=== PATIENT | female | born 1980 | race Caucasian/White ===

== ENCOUNTER 2016-03-03 11:11 | Outpatient (CLI) | payer MEDICAID | END 2016-03-03 11:12 | disposition home or self-care (01) | DX: E11.9 Type 2 diabetes mellitus without complications (principal) ==

== ENCOUNTER 2016-05-05 07:03 | Emergency (ER) | payer MEDICAID ==
[2016-05-05] MEDS ORDERED: ONDANSETRON 4 MG/2 ML VIAL IVP STA (07:22)
[2016-05-05] MEDS ORDERED: SODIUM CHLORIDE 0.9% 1,000 ML IV ONE (07:22)
[2016-05-05] MEDS ORDERED: KETOROLAC 60 MG/2 ML VIAL IVP STA (07:22)
[2016-05-05] MEDS ORDERED: ONDANSETRON 4 MG/2 ML VIAL ONE (07:32)
[2016-05-05] MEDS ORDERED: KETOROLAC 30 MG/ML VIAL ONE (07:32)
[2016-05-05] MEDS ORDERED: HYDROcod/ACETAM 5/325 MG TABLET PO STA (09:55)
[2016-05-05] MEDS ORDERED: HYDROcod/ACETAM 5/325 MG TABLET ONE (10:03)
== END 2016-05-05 10:52 | disposition home or self-care (01) ==
DX: R10.2 Pelvic and perineal pain (principal); N92.0 Excessive and frequent menstruation with regular cycle; E11.9 Type 2 diabetes mellitus without complications; F17.200 Nicotine dependence, unspecified, uncomplicated
CPT/HCPCS: 36415; 76830; 76856; 80053; 81001; 81025; 83690; 84443; 85025; 93976; 96361; 96374; 96375; 99284; A9270

== ENCOUNTER 2017-05-04 07:47 | Outpatient (CLI) | payer MEDICAID ==
[2017-05-04 13:34] LABS: ALBUMIN/GLOBULIN RATIO 1.4 (1.0-2.2); ALKALINE PHOSPHATASE 49 IU/L (42-121); ALT ALANINE AMINOTRANSFERASE 14 IU/L (10-60); AST ASPARTATE AMINOTRANSFERASE 15 IU/L (10-42); BILIRUBIN,TOTAL 0.6 mg/dL (0.2-1.0); BUN - BLOOD UREA NITROGEN 16 mg/dL (6-20); CALCIUM 8.8 mg/dL (8.5-10.3); CARBON DIOXIDE - CO2 25 mmol/L (21-32); CHLORIDE 103 mmol/L (101-111); CHOL/HDL RATIO 5.4 (<4.4); CHOLESTEROL 195 mg/dL; CREATININE 0.7 mg/dL (0.4-1.0); GFR - MDRD 94 (>89); GLUCOSE 202 mg/dL (70-100); HDL CHOLESTEROL 36 mg/dL; LDL CHOLESTEROL,CALCULATED 124 mg/dL; LDL/HDL RATIO 3.4 (<4.4); SODIUM 138 mmol/L (135-145); TOTAL PROTEIN 6.9 g/dL (6.7-8.2); VLDL CHOLESTEROL 35 mg/dL
[2017-05-04 13:39] LABS: HB2 TOTAL 14.6 g/dL; HEMOGLOBIN A1C 1.07 g/dL; HEMOGLOBIN A1C % 8.9 % (4.6-6.2)
== END 2017-05-04 07:48 | disposition home or self-care (01) ==
LOC: LAB.N 07:47
PROVIDERS: ATTEND Nurse Practitioner
DX: E11.65 Type 2 diabetes mellitus with hyperglycemia (principal)
CPT/HCPCS: 36415; 80053; 80061; 82043; 83036; 83721; 84443

== ENCOUNTER 2017-08-11 08:00 | Outpatient (CLI) | payer MEDICAID ==
[2017-08-11 13:00] LABS: ALBUMIN/GLOBULIN RATIO 1.3 (1.0-2.2); ALKALINE PHOSPHATASE 55 IU/L (42-121); ALT ALANINE AMINOTRANSFERASE 11 IU/L (10-60); AST ASPARTATE AMINOTRANSFERASE 15 IU/L (10-42); BILIRUBIN,TOTAL 0.7 mg/dL (0.2-1.0); BUN - BLOOD UREA NITROGEN 13 mg/dL (6-20); CALCIUM 8.6 mg/dL (8.5-10.3); CARBON DIOXIDE - CO2 21 mmol/L (21-32); CHLORIDE 106 mmol/L (101-111); CHOL/HDL RATIO 5.1 (<4.4); CHOLESTEROL 183 mg/dL; CREATININE 0.7 mg/dL (0.4-1.0); GFR - MDRD 94 (>89); GLUCOSE 203 mg/dL (70-100); HDL CHOLESTEROL 36 mg/dL; LDL CHOLESTEROL,CALCULATED 121 mg/dL; LDL/HDL RATIO 3.4 (<4.4); SODIUM 135 mmol/L (135-145); TOTAL PROTEIN 7.2 g/dL (6.7-8.2); VLDL CHOLESTEROL 26 mg/dL
[2017-08-11 13:38] LABS: HB2 TOTAL 15.7 g/dL
== END 2017-08-11 08:01 ==
LOC: LAB.N 08:00
PROVIDERS: ATTEND Nurse Practitioner
DX: E11.65 Type 2 diabetes mellitus with hyperglycemia (principal)
CPT/HCPCS: 36415; 80053; 80061; 82043; 83036; 83721; 84443

== ENCOUNTER 2017-12-12 16:14 | Outpatient (CLI) | payer MEDICAID ==
--- NOTE | 2017-12-12 16:57 | XRAY Report ---
Reason: SPRAINED WRIST Procedure Date: 12/12/2017 Accession Number: [id number] / [id number] Procedure: XRN - Hand 3 View LT CPT Code: FULL RESULT: EXAM: LEFT HAND RADIOGRAPHY EXAM DATE: 12/12/2017 04:29 PM. CLINICAL HISTORY: SPRAINED WRIST. Pain COMPARISON: None. TECHNIQUE: 3 views. FINDINGS: Bones: No fractures or bone lesions. Joints: No subluxations or significant degenerative narrowing. Soft Tissues: No soft tissue swelling or radiopaque foreign body. IMPRESSION: Normal left hand radiography. RADIA
== END 2017-12-12 16:15 | disposition home or self-care (01) ==
LOC: DI.N 16:14
PROVIDERS: ATTEND Nurse Practitioner
DX: S63.592A Other specified sprain of left wrist, initial encounter (principal); M79.645 Pain in left finger(s)

== ENCOUNTER 2017-12-21 09:20 | Outpatient (CLI) | payer MEDICAID ==
[2017-12-21 13:18] LABS: ALBUMIN 4.2 g/dL (3.2-5.5); ALBUMIN/GLOBULIN RATIO 1.4 (1.0-2.2); ALKALINE PHOSPHATASE 61 IU/L (42-121); ALT ALANINE AMINOTRANSFERASE 20 IU/L (10-60); AST ASPARTATE AMINOTRANSFERASE 18 IU/L (10-42); BILIRUBIN,TOTAL 0.5 mg/dL (0.2-1.0); BUN - BLOOD UREA NITROGEN 17 mg/dL (6-20); CALCIUM 9.3 mg/dL (8.5-10.3); CARBON DIOXIDE - CO2 25 mmol/L (21-32); CHLORIDE 101 mmol/L (101-111); CHOL/HDL RATIO 6.5 (<4.4); CHOLESTEROL 208 mg/dL; CREATININE 0.8 mg/dL (0.4-1.0); GFR - MDRD 80 (>89); GLUCOSE 283 mg/dL (70-100); HDL CHOLESTEROL 32 mg/dL; SODIUM 136 mmol/L (135-145); TOTAL PROTEIN 7.3 g/dL (6.7-8.2); URIC ACID 5.4 mg/dL (2.6-7.2)
[2017-12-21 13:38] LABS: LDL CHOLESTEROL,DIRECT 126 mg/dL; LDLD/HDL RATIO 3.9 (<4.4)
[2017-12-21 13:51] LABS: HB2 TOTAL 16.2 g/dL; HEMOGLOBIN A1C 1.24 g/dL; HEMOGLOBIN A1C % 9.2 % (4.6-6.2)
== END 2017-12-21 09:21 ==
LOC: LAB.N 09:20
PROVIDERS: ATTEND Nurse Practitioner
DX: E11.65 Type 2 diabetes mellitus with hyperglycemia (principal); M79.645 Pain in left finger(s)
CPT/HCPCS: 36415; 80053; 80061; 82043; 83036; 83721; 84443; 84550

== ENCOUNTER 2018-05-06 08:55 | Emergency (ER) | payer MEDICAID, OTHER ==
[2018-05-06 09:02] VITALS: BP 138/58
[2018-05-06] MEDS ORDERED: DEXAMETHASONE 10 MG/ML VIAL PO STA (10:27)
[2018-05-06] MEDS ORDERED: IPRATROPIUM/ALBUTEROL 3 ML NEB INH STA (10:28)
--- NOTE | 2018-05-06 10:29 | ED Physician Documentation ---
PD HPI URI - Stated complaint Stated Complaint: SOA/FEVER - Chief complaint Chief Complaint: Resp - History obtained from History obtained from: Patient, Family - History of Present Illness Timing - onset: How many days ago (3) Timing duration: Days (3) Timing details: Gradual onset, Still present Associated symptoms: Nasal congestion, Rhinorrhea, Productive cough, Dyspnea Contributing factors: Sick contact Improves by: Rest, Medication Similar symptoms before: Diagnosis (pneumonia RAD) Recently seen: Not recently seen - Additional information Additional information: 37-year-old diabetic female has developed a cough and congestion 3 days ago and she is coughing up some brown phlegm and feels short of breath. She has had use an inhaler previously she has not had fever with this. She does state that her diabetes has been poorly controlled she does have insulin at home and a sliding scale and she has not been checking her sugars. Review of Systems Constitutional: denies: Fever Eyes: denies: Decreased vision Ears: denies: Ear pain Nose: reports: Rhinorrhea / runny nose, Congestion, Sinus pressure / pain Throat: denies: Sore throat Cardiac: denies: Chest pain / pressure, Palpitations Respiratory: reports: Dyspnea, Cough GI: denies: Abdominal Pain, Nausea, Vomiting : denies: Dysuria Skin: denies: Rash Musculoskeletal: denies: Neck pain, Back pain Neurologic: denies: Generalized weakness, Focal weakness, Numbness PD PAST MEDICAL HISTORY - Past Medical History Cardiovascular: None Respiratory: None Endocrine/Autoimmune: Type 2 diabetes GI: None 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 - Past Surgical History Past Surgical History: Yes /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 - Present Medications Home Medications: Ambulatory Orders Medication Instructions Recorded Confirmed Insulin Aspart [Novolog Flexpen] 5 unit SUBQ TIDWM 05/18/17 05/06/18 Liraglutide [Victoza 2-Archie] 0.6 mg SQ QPM 05/18/17 05/06/18 Insulin Glargine [Lantus Solostar] 8 unit SUBQ DAILY 06/15/17 05/06/18 Albuterol Sulf [Ventolin Hfa 1 - 2 puffs INH Q4HR PRN #1 inhaler 05/06/18 Inhaler] Amox/Clav 875/125 [Augmentin] 1 each PO Q12H #20 tablet 05/06/18 Fluconazole [Diflucan] 150 mg PO ONCE #1 tablet 05/06/18 - Allergies Allergies/Adverse Reactions: Allergies Allergy/AdvReac Type Severity Reaction Status Date / Time pramoxine [From [place] [place]] Allergy Severe Hives Verified 05/06/18 09:02 strawberry Allergy Unknown Verified 05/06/18 09:02 - Social History Does the pt smoke?: Yes Smoking Status: Current some day smoker Does the pt drink ETOH?: No Does the pt have substance abuse?: No - Immunizations Immunizations are current?: Yes PD ED PE NORMAL - Vitals Vital signs reviewed: Yes (tachy nad hypertensive ) - General General: Alert and oriented X 3, No acute distress, Well developed/nourished - HEENT HEENT: Atraumatic, PERRL, EOMI, Ears normal, Moist mucous membranes, Pharynx benign, Other (There is left maxillary sinus point tenderness) - Neck Neck: Supple, no meningeal sign, No bony TTP - Cardiac Cardiac: RRR, No murmur - Respiratory Respiratory: No respiratory distress, Clear bilaterally, Other (diminished breath sounds bilat) - Abdomen Abdomen: Soft, Non tender - Back Back: No CVA TTP, No spinal TTP - Derm Derm: Normal color, Warm and dry, No rash - Extremities Extremities: No deformity, No edema - Neuro Neuro: Alert and oriented X 3, busgirl 2-12 intact, No motor deficit, No sensory deficit, Normal speech Eye Opening: Spontaneous Motor: Obeys Commands Verbal: Oriented GCS Score: 15 - Psych Psych: Normal mood, Normal affect Results - Vitals Vitals: Vital Signs - 24 hr 05/06/18 05/06/18 09:00 10:44 Temperature 36.1 C L Heart Rate 102 H 96 Respiratory 14 16 Rate Blood Pressure 138/58 H O2 Saturation 99 Oxygen O2 Source Room air PD MEDICAL DECISION MAKING - ED course Complexity details: reviewed results, re-evaluated patient, considered differential, d/w patient, d/w family ED course: 37-year-old diabetic female with cough and congestion has sinus point tenderness on the left maxillary sinus on examination she does have clear sounding lungs with diminished breath sounds. She is administered dexamethasone 10 mg orally and a DuoNeb treatment here in the emergency department we will start on some antibiotic. She is warned to use her sliding scale insulin with the effects of the dexamethasone. Departure - Departure Disposition: 01 Home, Self Care Clinical Impression: Sinusitis Qualifiers: Sinusitis location: maxillary Chronicity: acute Recurrence: not specified as recurrent Qualified Code(s): J01.00 - Acute maxillary sinusitis, unspecified Reactive airway disease Qualifiers: Asthma severity: mild Asthma persistence: intermittent Asthma complication type: with acute exacerbation Qualified Code(s): J45.21 - Mild intermittent asthma with (acute) exacerbation Condition: Stable Instructions: ED Bronchitis Asthmatic, ED Sinusitis Abx Tx Follow-Up: Bharati Oneill PA-C [Primary Care Provider] - Prescriptions: Albuterol Sulf [Ventolin Hfa Inhaler] 1 - 2 puffs INH Q4HR PRN #1 inhaler PRN Reason: Shortness Of Air/Wheezing Amox/Clav 875/125 [Augmentin] 1 each PO Q12H #20 tablet Fluconazole [Diflucan] 150 mg PO ONCE #1 tablet Forms: Activity restrictions
[2018-05-06] MEDS ORDERED: CHERRY SYRUP 10 ML UDC PO ONE (10:39)
== END 2018-05-06 11:10 | disposition home or self-care (01) ==
LOC: ED 08:55
DX: J01.00 Acute maxillary sinusitis, unspecified (principal); J45.21 Mild intermittent asthma with (acute) exacerbation; E11.9 Type 2 diabetes mellitus without complications; Z79.4 Long term (current) use of insulin; F17.200 Nicotine dependence, unspecified, uncomplicated
CPT/HCPCS: 94640; 94664; 99283; A9270

== ENCOUNTER 2019-03-14 07:40 | Outpatient (CLI) | payer OTHER ==
[2019-03-14 12:25] LABS: BASOPHILS % (AUTO) 0.6 %; EOSINOPHILS # (AUTO) 0.2 10^3/uL (0.0-0.7); EOSINOPHILS % (AUTO) 2.6 %; HGB - HEMOGLOBIN 14.7 g/dL (12.0-16.0); LYMPHOCYTES # (AUTO) 1.7 10^3/uL (1.5-3.5); LYMPHOCYTES % (AUTO) 26.5 %; MEAN CORPUSCULAR HEMOGLOBIN 28.8 pg (27.0-31.0); MEAN CORPUSCULAR HGB CONC 32.3 g/dL (32.0-36.0); MEAN CORPUSCULAR VOLUME 89.2 fL (81.0-99.0); MEAN PLATELET VOLUME 12.8 fL (7.9-10.8); MONOCYTES # (AUTO) 0.6 10^3/uL (0.0-1.0); MONOCYTES % (AUTO) 8.8 %; PLT - PLATELET COUNT 161 10^3/uL (130-450); RED CELL DISTRIBUTION WIDTH 13.8 % (12.0-15.0); WHITE BLOOD COUNT 6.6 x10^3/uL (4.8-10.8)
[2019-03-14 12:26] LABS: ALBUMIN 4.1 g/dL (3.2-5.5); ALBUMIN/GLOBULIN RATIO 1.3 (1.0-2.2); ALKALINE PHOSPHATASE 53 IU/L (42-121); ALT ALANINE AMINOTRANSFERASE 34 IU/L (10-60); AST ASPARTATE AMINOTRANSFERASE 32 IU/L (10-42); BILIRUBIN,TOTAL 0.8 mg/dL (0.2-1.0); BUN - BLOOD UREA NITROGEN 15 mg/dL (6-20); CALCIUM 8.8 mg/dL (8.5-10.3); CARBON DIOXIDE - CO2 23 mmol/L (21-32); CHLORIDE 100 mmol/L (101-111); CHOL/HDL RATIO 6.7 (<4.4); CHOLESTEROL 200 mg/dL; CREATININE 0.7 mg/dL (0.4-1.0); GFR - MDRD 93 (>89); GLUCOSE 338 mg/dL (70-100); HB2 TOTAL 14.9 g/dL; HDL CHOLESTEROL 30 mg/dL; HEMOGLOBIN A1C 1.54 g/dL; HEMOGLOBIN A1C % 11.6 % (4.6-6.2); LDL CHOLESTEROL,CALCULATED 94 mg/dL; LDL/HDL RATIO 3.1 (<4.4); SODIUM 134 mmol/L (135-145); TOTAL PROTEIN 7.3 g/dL (6.7-8.2); VLDL CHOLESTEROL 76 mg/dL
[2019-03-14 12:44] LABS: CREATININE,URINE 58.1 mg/dL; MICROALBUM/CREATININE RATIO,UR 24.1 ug/mg (<30.0); MICROALBUMIN,URINE 1.4 mg/dL (0-300.0)
== END 2019-03-14 23:59 | disposition home or self-care (01) ==
LOC: LAB.N 07:40
PROVIDERS: ATTEND Family Medicine
DX: E78.2 Mixed hyperlipidemia (principal); E66.9 Obesity, unspecified; E11.65 Type 2 diabetes mellitus with hyperglycemia; F17.200 Nicotine dependence, unspecified, uncomplicated
CPT/HCPCS: 36415; 80053; 80061; 82043; 82570; 83036; 83721; 84443; 85025

== ENCOUNTER 2019-03-28 09:11 | Outpatient (CLI) | payer OTHER ==
--- NOTE | 2019-03-28 15:33 | XRAY Report ---
Reason: LUMBAR RADICULPATHY Procedure Date: 03/28/2019 Accession Number: [id number] / [id number] Procedure: XRN - Lumbar Spine Complete CPT Code: Final Report FULL RESULT: EXAM: LUMBOSACRAL SPINE RADIOGRAPHY 5 YEARS EXAM DATE: 03/28/2019. CLINICAL HISTORY: Lumbar radiculopathy. COMPARISONS: None. TECHNIQUE: 3 views. FINDINGS: Alignment: Normal. No spondylolisthesis or significant scoliosis. Bones: Five [id number] lumbar vertebral bodies are present. No fractures or bone lesions. Small vertebral body osteophytes at L2-L3 and L3-L4, Disks: Normal. Disk heights are maintained. Facets: No degenerative changes visible. Sacroiliac Joints: Normal. Soft Tissues: Normal. The visualized bowel gas pattern is normal. IMPRESSION: Mild degenerative spondylosis at L2-L3 and L3-L4. Otherwise normal examination. RADIA
== END 2019-03-28 09:12 | disposition home or self-care (01) ==
LOC: DI.N 09:11
PROVIDERS: ATTEND Family Medicine
DX: M47.816 Spondylosis without myelopathy or radiculopathy, lumbar region (principal)
CPT/HCPCS: 72110

== ENCOUNTER 2022-05-31 08:00 | Outpatient (CLI) | payer BC, OTHER ==
[2022-05-31 20:48] LABS: CANDIDA GLABRATA DNA POSITIVE (NEGATIVE); CANDIDA GROUP DNA POSITIVE (NEGATIVE)
[2022-05-31 20:49] LABS: BACTERIAL VAGINOSIS DNA NEGATIVE (NEGATIVE); CANDIDA KRUSEI DNA NEGATIVE (NEGATIVE); TRICHOMONAS VAGINALIS DNA NEGATIVE (NEGATIVE)
== END 2022-05-31 23:59 | disposition home or self-care (01) ==
LOC: LAB.N 08:00
PROVIDERS: ATTEND Physician Assistant
DX: R73.9 Hyperglycemia, unspecified (principal); R30.0 Dysuria
CPT/HCPCS: 81514

== ENCOUNTER 2022-09-22 09:05 | Outpatient (CLI) | payer BC ==
[2022-09-22 12:25] LABS: BASOPHILS % (AUTO) 0.7 %; EOSINOPHILS # (AUTO) 0.2 10^3/uL (0.0-0.7); EOSINOPHILS % (AUTO) 2.5 %; HCT - HEMATOCRIT 45.1 % (37.0-47.0); HGB - HEMOGLOBIN 14.6 g/dL (12.0-16.0); LYMPHOCYTES # (AUTO) 1.7 10^3/uL (1.5-3.5); LYMPHOCYTES % (AUTO) 27.8 %; MEAN CORPUSCULAR HEMOGLOBIN 28.3 pg (27.0-31.0); MEAN CORPUSCULAR HGB CONC 32.4 g/dL (32.0-36.0); MEAN CORPUSCULAR VOLUME 87.6 fL (81.0-99.0); MONOCYTES # (AUTO) 0.5 10^3/uL (0.0-1.0); MONOCYTES % (AUTO) 8.8 %; NEUTROPHILS # (AUTO) 3.7 10^3/uL (1.5-6.6); PLT - PLATELET COUNT 172 10^3/uL (130-450); RED BLOOD COUNT 5.15 10^6/uL (4.20-5.40); RED CELL DISTRIBUTION WIDTH 13.6 % (12.0-15.0); WHITE BLOOD COUNT 6.1 x10^3/uL (4.8-10.8)
[2022-09-22 12:46] LABS: ESTIMATED AVERAGE GLUCOSE 272 mg/dL (70-100); HEMOGLOBIN A1c% 11.1 % (4.27-6.07)
[2022-09-22 12:50] LABS: ALBUMIN 4.1 g/dL (3.2-5.5); ALBUMIN/GLOBULIN RATIO 1.5 (1.0-2.2); ALKALINE PHOSPHATASE 53 IU/L (42-121); ALT ALANINE AMINOTRANSFERASE 16 IU/L (10-60); AST ASPARTATE AMINOTRANSFERASE 16 IU/L (10-42); BILIRUBIN,TOTAL 0.7 mg/dL (0.2-1.0); BUN - BLOOD UREA NITROGEN 11 mg/dL (6-20); CALCIUM 8.9 mg/dL (8.5-10.3); CARBON DIOXIDE - CO2 25 mmol/L (21-32); CHLORIDE 101 mmol/L (101-111); CHOL/HDL RATIO 5.9 (<4.4); CHOLESTEROL 202 mg/dL; CREATININE 0.8 mg/dL (0.6-1.3); GFR - MDRD 79 (>89); GLUCOSE 295 mg/dL (74-104); HDL CHOLESTEROL 34 mg/dL; LDL CHOLESTEROL,CALCULATED 95 mg/dL; LDL/HDL RATIO 2.8 (<4.4); POTASSIUM 4.1 mmol/L (3.5-4.5); SODIUM 133 mmol/L (135-145); TOTAL PROTEIN 6.9 g/dL (6.4-8.9); TRIGLYCERIDES 363 mg/dL (48-352); VLDL CHOLESTEROL 73 mg/dL
[2022-09-22 13:02] LABS: THYROID STIMULATING HORMONE 2.31 uIU/mL (0.34-5.60)
== END 2022-09-22 09:06 | disposition home or self-care (01) ==
LOC: LAB.N 09:05
PROVIDERS: ATTEND Nurse Practitioner Family
DX: E11.65 Type 2 diabetes mellitus with hyperglycemia (principal); E78.2 Mixed hyperlipidemia
CPT/HCPCS: 36415; 80053; 80061; 83036; 83721; 84443; 85025

== ENCOUNTER 2023-01-06 07:44 | Outpatient (CLI) | payer BC ==
[2023-01-06 12:46] LABS: ESTIMATED AVERAGE GLUCOSE 200 mg/dL (70-100); HEMOGLOBIN A1c% 8.6 % (4.27-6.07)
[2023-01-06 12:47] LABS: BUN - BLOOD UREA NITROGEN 13 mg/dL (6-20); CALCIUM 9.1 mg/dL (8.5-10.3); CARBON DIOXIDE - CO2 28 mmol/L (21-32); CHLORIDE 102 mmol/L (101-111); CHOL/HDL RATIO 6.1 (<4.4); CHOLESTEROL 214 mg/dL; CREATININE 0.7 mg/dL (0.6-1.3); GFR - MDRD 91 (>89); GLUCOSE 208 mg/dL (74-104); HDL CHOLESTEROL 35 mg/dL; LDL CHOLESTEROL,CALCULATED 136 mg/dL; LDL/HDL RATIO 3.9 (<4.4); POTASSIUM 3.9 mmol/L (3.5-4.5); SODIUM 136 mmol/L (135-145); TRIGLYCERIDES 214 mg/dL (48-352); VLDL CHOLESTEROL 43 mg/dL
[2023-01-06 12:52] LABS: CREATININE,URINE 115.1 mg/dL; MICROALBUM/CREATININE RATIO,UR 17.4 ug/mg (<30.0)
== END 2023-01-06 07:45 | disposition home or self-care (01) ==
LOC: LAB.N 07:44
PROVIDERS: ATTEND Nurse Practitioner Family
DX: E11.65 Type 2 diabetes mellitus with hyperglycemia (principal); E78.1 Pure hyperglyceridemia
CPT/HCPCS: 36415; 80048; 80061; 82043; 82570; 83036; 83721

== ENCOUNTER 2023-01-24 10:00 | Outpatient (CLI) | payer BC ==
--- NOTE | 2023-01-25 08:50 | XRAY Report ---
PROCEDURE: Hand 3 View BILAT INDICATIONS: BILAT HAND PAIN, RIGHT THUMB PAIN TECHNIQUE: 3 views of eachhand(s) acquired. COMPARISON: X-ray left hand, 12/12/2017. FINDINGS: Bones: No fractures or dislocations. No suspicious bony lesions. Mild osteoarthritic changes, most pronounced at triscaphe joints and the first carpometacarpal joints. No bony erosion. Soft tissues: No suspicious soft tissue calcifications or masses. IMPRESSION: Mild osteoarthritis. Reviewed by: Maureen Weiner MD on 01/25/2023 8:49 AM [facility] Approved by: Maureen Weiner MD on 01/25/2023 8:49 AM [facility] Station ID: [id number]
== END 2023-01-24 23:59 | disposition home or self-care (01) ==
LOC: DI.WOS 10:00
PROVIDERS: ATTEND Physician Assistant Surgical
DX: G56.00 Carpal tunnel syndrome, unspecified upper limb (principal); M19.042 Primary osteoarthritis, left hand; M19.041 Primary osteoarthritis, right hand

== ENCOUNTER 2023-04-10 08:34 | Outpatient (CLI) | payer BC ==
[2023-04-10 13:52] LABS: ESTIMATED AVERAGE GLUCOSE 192 mg/dL (70-100); HEMOGLOBIN A1c% 8.3 % (4.27-6.07)
== END 2023-04-10 08:35 | disposition home or self-care (01) ==
LOC: LAB.N 08:34
PROVIDERS: ATTEND Nurse Practitioner Family
DX: E11.65 Type 2 diabetes mellitus with hyperglycemia (principal)
CPT/HCPCS: 36415; 83036

== ENCOUNTER 2023-10-23 09:27 | Outpatient (CLI) | payer BC ==
--- NOTE | 2023-10-23 10:38 | XRAY Report ---
PROCEDURE: Shoulder 2+V RT INDICATIONS: RIGHT SHOULDER PAIN TECHNIQUE: 4 views of the shoulder were acquired. COMPARISON: None. FINDINGS: Bones: No fractures or dislocations. No suspicious bony lesions. Visualized ribs appear intact. Soft tissues: No suspicious soft tissue calcifications. The visualized lungs are within normal limi ts. IMPRESSION: No acute bony abnormality. Reviewed by: Mahin Garcia MD on 10/23/2023 10:37 AM PDT Approved by: Mahin Garcia MD on 10/23/2023 10:37 AM PDT Station ID: [id number]
== END 2023-10-23 09:28 | disposition home or self-care (01) ==
LOC: DI 09:27
PROVIDERS: ATTEND Physician Assistant Surgical
DX: M25.511 Pain in right shoulder (principal)

== ENCOUNTER 2023-11-15 12:01 | Outpatient (CLI) | payer BC ==
[2023-11-15] MEDS ORDERED: LIDOCAINE-MPF 1% 5 ML VIAL ONE (12:10)
[2023-11-15] MEDS ORDERED: iohexoL-240 10 ML VIAL IVP ONE (12:11)
[2023-11-15] MEDS ORDERED: GADOTERATE MEGLUMINE 5 MMOL/10 ML VIAL ONE (12:11)
[2023-11-15] MEDS: GADOTERATE MEGLUMINE 5 MMOL/10 ML VIAL IVP ONE (13:38)
[2023-11-15] MEDS: LIDOCAINE-MPF 1% 5 ML VIAL TD ONE (13:40)
[2023-11-15] MEDS: iohexoL-240 10 ML VIAL IVP ONE (13:41)
--- NOTE | 2023-11-15 13:45 | XRAY Report ---
PROCEDURE: Arthrogram Needle Placement INDICATIONS: R SHOULDER STRAIN CONTRAST: 12 cc of diluted intra-articular gadolinium contrast. FLUOROSCOPY TIME: Less than 1 minute TECHNIQUE: The indications, alternatives, benefits, risks, and complications of the procedure were explained to the patient. Written informed consent was obtained and placed in the chart. The shoulder was examin ed fluoroscopically and a site for needle placement chosen for entry into the glenohumeral joint from an anterior approach. The skin was prepped and draped in the usual fashion, and 1% lidocaine infilt rated from skin down to joint capsule. A spinal needle was inserted into the glenohumeral joint, and a small amount of iodinated contrast media injected to confirm intra-articular placement of the need le tip. This was followed by approximately 12 mL dilute solution of a gadolinium containing MR contr ast agent. The needle was removed and a dressing was applied. The patient was given postprocedural instructions and sent to the MR suite for MR imaging. FINDINGS: A single fluoroscopic spot image demonstrates intra-articular location of injected iodinated contrast . IMPRESSION: Successful fluoroscopically guided administration of dilute Gadolinium solution into the shoulder ren cortez for MR arthrogram. Reviewed by: Devin Cordon MD on 11/15/2023 1:44 PM PDT Approved by: Devin Cordon MD on 11/15/2023 1:44 PM PDT Station ID: [id number]
--- NOTE | 2023-11-15 13:46 | MRI Report ---
Arthrogram Shoulder RT CLINICAL HISTORY: 42 years of age, Female, R SHOULDER STRAIN. Comparison: No priors available Technique: After the administration of 12 mL of dilute intra-articular Gadolinium contrast, oblique c oronal T1 and T2 spin echo with fat saturation, oblique sagittal T1 spin echo with and without fat sa turation, oblique sagittal T2 fast spin echo with fat saturation, axial T1 spin echo with fat saturat ion through the shoulder. Findings: Osseous acromial outlet: Mild degenerative changes of the acromioclavicular joint. Type I acromion. N o os acromiale. Mild subacromial/subdeltoid bursitis. Rotator cuff muscles and tendons: Mild tendinosis of the supraspinatus and infraspinatus, without tea r. Teres minor is unremarkable. The subscapularis is unremarkable. Muscles are intact without evidence of atrophy or edema. Labral and capsular structures: Tear of the anterior labrum. Biceps tendon and anchor: The intra-articular and extra-articular biceps tendon are intact. Osseous and cartilaginous structures: Bone marrow signal is within normal limits. No fracture or disl ocation. No focal chondral defects. Miscellaneous: No intra-articular bodies. The remaining muscles are normal in bulk without evidence o f atrophy or edema. IMPRESSION: 1.Mild degenerative changes of the acromioclavicular joint. 2.Mild tendinosis of the supraspinatus and infraspinatus, without tear. 3.Tear of the anterior labrum. Reviewed by: Edwige Day MD on 11/15/2023 1:45 PM PDT Approved by: Edwige Day MD on 11/15/2023 1:45 PM PDT Station ID: [id number]
== END 2023-11-15 12:02 | disposition home or self-care (01) ==
LOC: DI 12:01
PROVIDERS: ATTEND Physician Assistant Surgical
DX: S46.811A Strain of other muscles, fascia and tendons at shoulder and upper arm level, right arm, initial encounter (principal); M19.011 Primary osteoarthritis, right shoulder; M67.813 Other specified disorders of tendon, right shoulder; S43.491A Other sprain of right shoulder joint, initial encounter
CPT/HCPCS: 23350; 73222; 77002; A9575; Q9966